=== PATIENT | female | born 1970 | race American Indian/Alaskan Native ===

== ENCOUNTER 2019-06-15 01:26 | Emergency (ER) | payer SELFPAY ==
--- NOTE | 2019-06-15 03:07 | Emergency Department Report ---
ED Extremity Problem HPI - General Chief complaint: Extremity Injury, Lower Stated complaint: stabbing leg pain Time Seen by Provider: 06/15/19 02:52 Source: patient Mode of arrival: Ambulatory Limitations: No Limitations - History of Present Illness Initial comments: Patient is a 49-year-old female presents to the emergency room with complaints of pain behind her left knee and radiates up her leg began earlier today. States that she has been standing up and working and it began afterwards. She states it feels like a throbbing/spasm pain. She denies any fall or injury. Patient denies any recent car or plane ride, recent surgery, recent immobilization, hormone use. She states she had an arthroscopy on this knee in the s. She has a past medical history of asthma and HTN. pt states she had a hysterectomy. - Related Data Previous Rx's Medication Instructions Recorded Last Taken Type Baclofen [Lioresal] 10 mg PO QHS PRN #10 tab 06/15/19 Unknown Rx Naproxen [Naprosyn TAB] 500 mg PO BID PRN #20 tablet 06/15/19 Unknown Rx Allergies Allergy/AdvReac Type Severity Reaction Status Date / Time acetaminophen [From [facility]] Allergy Hives Verified 06/15/19 03:45 codeine Allergy Hives Verified 06/15/19 03:45 hydrocodone [From [facility]] Allergy Hives Verified 06/15/19 03:45 ED Review of Systems ROS: Stated complaint: LEFT LEG SWOLLEN/PAIN,PAIN RADIATING UP TO SHOULDE Other details as noted in HPI Comment: All other systems reviewed and negative ED Past Medical Hx - Past Medical History Previous Medical History?: Yes Hx Hypertension: Yes - Surgical History Past Surgical History?: Yes Additional Surgical History: tubal ligation, hysterectomy, tonscillectomy, L knee sx - Social History Smoking Status: Never Smoker - Medications Home Medications: Home Medications Medication Instructions Recorded Confirmed Last Taken Type Baclofen [Lioresal] 10 mg PO QHS PRN #10 tab 06/15/19 Unknown Rx Naproxen [Naprosyn TAB] 500 mg PO BID PRN #20 tablet 06/15/19 Unknown Rx ED Physical Exam - General Limitations: No Limitations General appearance: alert, in no apparent distress - Head Head exam: Present: atraumatic, normocephalic - Eye Eye exam: Present: normal appearance - ENT ENT exam: Present: mucous membranes moist - Extremities Exam Extremities exam: Present: other (mild TTP to the posterior left knee, FROM of the left knee, left ankle, left foot, and left toes without difficulty, no edema present to the LLE, no erythema to the LLE, prior healed surgical scars to the left knee, no joint laxity, 2+ distal pulses, sensation intact, no calf tenderness) - Neurological Exam Neurological exam: Present: alert, oriented X3 - Psychiatric Psychiatric exam: Present: normal affect, normal mood - Skin Skin exam: Present: warm, dry, intact ED Course Vital Signs 06/15/19 06/15/19 01:37 03:47 Temperature 98.2 F 98.2 F Pulse Rate 78 65 Respiratory 16 16 Rate Blood Pressure 113/62 [Left] O2 Sat by Pulse 98 99 Oximetry ED Medical Decision Making - Medical Decision Making Patient is a 49-year-old female presents to the emergency room with complaints of pain behind her left knee and radiates up her leg began earlier today. States that she has been standing up and working and it began afterwards. She states it feels like a throbbing/spasm pain. She denies any fall or injury. Patient denies any recent car or plane ride, recent surgery, recent immobilization, hormone use. She states she had an arthroscopy on this knee in the s. She has a past medical history of asthma and HTN. pt states she had a hysterectomy. on exam: mild TTP to the posterior left knee, FROM of the left knee, left ankle, left foot, and left toes without difficulty, no edema present to the LLE, no erythema to the LLE, prior healed surgical scars to the left knee, no joint laxity, 2+ distal pulses, sensation intact, no calf tenderness. pt given prescription for naproxen and baclofen. advised to take medication as prescribed. discussed not to drive or operate heavy machinery while taking muscle relaxer. follow up with a primary care doctor in the next 2-3 days. return to the emergency room for any new or worsening symptoms or if begin experiencing leg swelling. - Differential Diagnosis arthritis, strain, sprain, muscle spasm, bakers cyst Critical care attestation.: If time is entered above; I have spent that time in minutes in the direct care of this critically ill patient, excluding procedure time. ED Disposition Clinical Impression: Left knee pain Qualifiers: Chronicity: acute Qualified Code(s): M25.562 - Pain in left knee Disposition: TO HOME OR SELFCARE Is pt being admited?: No Does the pt Need Aspirin: No Condition: Stable Instructions: Arthralgia (ED) Additional Instructions: Take medication as prescribed. discussed not to drive or operate heavy machinery while taking muscle relaxer. may use ice, heat, rest, elevation. follow up with a primary care doctor in the next 2-3 days. return to the emergency room for any new or worsening symptoms or if begin experiencing leg swelling. Prescriptions: Baclofen [Lioresal] 10 mg PO QHS PRN #10 tab PRN Reason: Muscle Spasm Naproxen [Naprosyn TAB] 500 mg PO BID PRN #20 tablet PRN Reason: pain Referrals: [facility] [Provider Group] - 2-3 Days [facility] [Outside] - 2-3 Days [facility] [Outside] - 2-3 Days Time of Disposition: 03:10 Print Language: GREEK
[2019-06-15 03:48] VITALS: BP 113/62
== END 2019-06-15 03:49 | disposition home or self-care (01) ==
LOC: ED 01:26
DX: M25.562 Pain in left knee (principal); I10 Essential (primary) hypertension; Z98.51 Tubal ligation status; Z90.710 Acquired absence of both cervix and uterus; Z90.89 Acquired absence of other organs; Z88.6 Allergy status to analgesic agent; Z88.5 Allergy status to narcotic agent